=== PATIENT | male | born 1970 | race Caucasian/White ===

== ENCOUNTER 2021-03-02 15:24 | Outpatient (CLI) | payer OTHER, SELFPAY ==
--- NOTE | ~2021-03-02 | XR_ITS ---
EXAMINATION: XR shoulder RT min 2V DATE: 03/02/2021 15:51 INDICATION: Right shoulder pain. TECHNIQUE: 4 views of right shoulder were obtained. COMPARISON: None. FINDINGS: Bone alignment is normal. No fracture. There is mild osteoarthritis of glenohumeral joint a nd acromioclavicular joint. IMPRESSION: 1. Polyarticular osteoarthritis. Reviewed, dictated and finalized at location A.
== END 2021-03-02 15:25 | disposition home or self-care (01) ==
LOC: ANHIMG 15:35
PROVIDERS: PCP Family Medicine; Visit Provider Physician Assistant
DX: M19.011 Primary osteoarthritis, right shoulder (principal)
CPT/HCPCS: 73030

== ENCOUNTER 2022-05-09 11:04 | Day surgery (SDC) | payer OTHER, SELFPAY ==
[2022-04-10 13:01] VITALS: BMI 34.7
[2022-04-24 11:19] VITALS: BMI 33.5
--- NOTE | 2022-05-08 15:54 | P.PNAN_ITS ---
Anes - Initial Pre Proc Eval Procedure: Operation Date: 05/09/22 12:00 Proposed Procedures p Screening Colonoscopy - Andres Moreau MD Date/Time: 05/08/22 15:54 Surgeon: Andres Moreau MD Pre Op Diagnosis: Family History of Rectal Cancer Patient Data Age: 51 Gender: M Height: 1.73 m Weight: 100 kg Allergies Allergy/AdvReac Type Severity Reaction Status Date / Time No Known Allergies Allergy Verified 05/09/22 11:50 Home Medications Medication Instructions Recorded Confirmed Type biotin 10,000 mcg capsule 10,000 mcg PO DAILY #30 caps 03/02/22 05/09/22 Rx multivitamin 1 tablet PO DAILY #30 tabs 03/02/22 05/09/22 Rx omega 3-jie-uyw-fish oil 120 1 cap PO DAILY #30 caps 03/02/22 05/09/22 Rx mg-180 mg-500 mg capsule (Fish Oil) Patient hx anesthesia problems: none Family hx anesthesia problems: none Results Review: All pre-operative results and documents have been reviewed as part of the pre- operative evaluation. [facility] Past Medical History Medical History (Updated 03/03/22 @ 14:30 by Zane Turner PA-C) Family history of rectal cancer Keratoacanthoma of lower leg No significant past medical history Surgical History Surgical History (Updated 10/13/19 @ 08:28 by Gi Terry) History of vasectomy Family History Family History (Updated 10/16/18 @ 07:44 by DOCTOR UNKNOWN) Mother Diabetes mellitus Father Family history of Alzheimer's disease Social History Social History (Updated 02/24/21 @ 13:27 by Fartun Milian) Smoking status: Never smoker Second hand tobacco smoke exposure: No Alcohol intake: current Drinks per week: 6 Alcohol use details: Socially Substance use: never Substance use type: does not use Living arrangements: with family Gender identity (if verbalized by the patient): Male Sexual Orientation (if Verbalized by the Patient): Straight or Heterosexual Spiritual care concerns: No Anes - Eval Final PreProcedure Day of Procedure 05/08/22 15:54 Patient weight: obese Heart: regular rate and rhythm Lungs: clear to auscultation Airway: Mallampati scale class II Neurological: alert and oriented Last oral intake: >/= 8 hours ASA classification: II Emergent: no Anesthetic plan: proceed Anesthesia type and monitoring: general GIVS and standard monitoring Results Review: All pre-operative results and documents have been reviewed as part of the pre- operative evaluation. Informed Consent: The patient's anesthetic plan and its attendant risks and benefits were discussed with the patient/family/POA. Questions were solicited and answers provided to the satisfaction of the patient/family/POA.
[2022-05-09 11:58] VITALS: BP 126/91; PULSE 68; RESP 18; TEMP 37.5; O2SAT 100; BMI 33.7
[2022-05-09] MEDS: LACTATED RINGERS 1,000 ML 150 ML IV CONT (12:04)
--- NOTE | 2022-05-09 12:48 | PM.HPGS ---
History of Present Illness History of Present Illness Consent: Risks, benefits, and alternatives have been discussed and questions answered. Patient agrees to proceed with procedure. Chief complaint: Family History of Rectal Cancer Narrative: Larry Peterson is a 51 year old male here for first screening colonoscopy, father had rectal cancer Review of Systems Constitutional: Constitutional: Denies headache(s) and Denies weakness Eyes: Eyes: Denies blurry vision ENT: Reports Normal hearing present, Denies headache(s) and Denies neck pain Cardiovascular: Cardiovascular: Denies chest pain and Denies dyspnea Respiratory: Respiratory: Denies dyspnea Gastrointestinal: Gastrointestinal: Reports no additional gastrointestinal complaints Genitourinary: Genitourinary: Denies dysuria Musculoskeletal: Musculoskeletal: Denies neck pain Integumentary/Breasts: Skin/Breast: Denies dry skin Neurologic: Reports Normal hearing present, Denies headache(s) and Denies weakness Psychiatric: Psychiatric: Denies anxiety Endocrine: Endocrine: Denies change in body appearance Hematologic/Lymphatic: Hematologic/Lymphatic: Denies easy bleeding Allergic/Immunologic: Allergic/Immunologic: Denies urticaria PMFSH Past Medical History Medical History (Updated 03/03/22 @ 14:30 by Zane Turner PA-C) Family history of rectal cancer Keratoacanthoma of lower leg No significant past medical history Surgical History Surgical History (Updated 10/13/19 @ 08:28 by Gi Terry) History of vasectomy Family History Family History (Updated 10/16/18 @ 07:44 by DOCTOR UNKNOWN) Mother Diabetes mellitus Father Family history of Alzheimer's disease Social History Social History (Updated 02/24/21 @ 13:27 by Fartun Milian) Smoking status: Never smoker Second hand tobacco smoke exposure: No Alcohol intake: current Drinks per week: 6 Alcohol use details: Socially Substance use: never Substance use type: does not use Living arrangements: with family Gender identity (if verbalized by the patient): Male Sexual Orientation (if Verbalized by the Patient): Straight or Heterosexual Spiritual care concerns: No Meds Home Medications and Allergies Home Medications Medication Instructions Recorded Confirmed Type biotin 10,000 mcg capsule 10,000 mcg PO DAILY #30 caps 03/02/22 05/09/22 Rx multivitamin 1 tablet PO DAILY #30 tabs 03/02/22 05/09/22 Rx omega 9-tqj-gcr-fish oil 120 1 cap PO DAILY #30 caps 03/02/22 05/09/22 Rx mg-180 mg-500 mg capsule (Fish Oil) Allergies Allergy/AdvReac Type Severity Reaction Status Date / Time No Known Allergies Allergy Verified 05/09/22 11:50 Vital Signs Vital Signs - 24 hr 05/09/22 11:58 Temperature 99.5 F Pulse Rate 68 Respiratory Rate 18 Blood Pressure 126/91 H Pulse Oximetry 100 Oxygen Delivery Room Air Exam Const: General: comfortable and no acute distress HENMT: General nose exam: Normal nares present Eyes: General: appearance normal, both eyes and all related structures Neck: Neck: no JVD Resp: Auscultation: clear to auscultation bilaterally Cardio: Rate: regular rate Rhythm: regular rhythm GI: Inspection: non-distended GI Palp: Yes Soft to palpation Skin: General skin exam: normal color Neuro: General: gait normal Speech: normal speech Extrem: General: normal to inspection Psych: Mental Status: mental status grossly normal Assessment and Plan Assessment and plan (1) Family history of rectal cancer: Code(s): Z80.0 - Family history of malignant neoplasm of digestive organs Status: Acute Assessment and Plan: colonoscopy
[2022-05-09 13:13] VITALS: BP 104/73; PULSE 69; RESP 16; O2SAT 99
[2022-05-09 13:23] VITALS: BP 107/77; PULSE 68; RESP 16; O2SAT 98
[2022-05-09 13:33] VITALS: BP 109/82; PULSE 64; RESP 18; O2SAT 100
--- NOTE | 2022-05-09 13:40 | SUR.PHASEII ---
PT AWAKE AND DRESSED. DRINKING WATER. DENIES PAIN. WAITING ON MD INSTRUCTION SHEET.
--- NOTE | 2022-05-09 13:46 | WPDANESPN ---
Anes - Prog Note Post-Op Date/Time: 05/09/22 13:46 Cardiovascular status: normal Respiratory status: normal Airway patency: baseline Mental status: baseline Post-Op hydration status: normal Vital Signs: Last Vital Signs Temp 37.5 C 05/09/22 11:58 Pulse 64 05/09/22 13:33 Resp 18 05/09/22 13:33 BP 109/82 05/09/22 13:33 Pulse Ox 100 05/09/22 13:33 O2 Del Method Room Air 05/09/22 13:33 Pain Score (VAS): 0 I/O: Intake & Output 05/08/22 05/09/22 05/09/22 23:59 07:59 15:59 Intake Total 400 Balance 400 Post-procedural complaints: none Patient Feedback: Patient satisfied with anesthetic care. Other Findings: Patient vital signs back to baseline. Patient denies nausea and vomiting. Patient's pain under control. Patient OK for discharge.
== END 2022-05-09 13:50 | disposition home or self-care (01) ==
PROVIDERS: PCP Family Medicine; Visit Provider Internal Medicine Gastroenterology
PROC: 0DJD8ZZ Inspection of Lower Intestinal Tract, Via Natural or Artificial Opening Endoscopic (ICD-10-PCS; CPT 45378; principal; 2022-05-09 12:00)
DX: Z80.0 Family history of malignant neoplasm of digestive organs (principal)
CPT/HCPCS: 45385; 45380

== ENCOUNTER 2022-05-09 13:00 | Outpatient (NON) | payer OTHER, SELFPAY | END 2022-05-09 13:01 | disposition home or self-care (01) | PROVIDERS: PCP Family Medicine; Visit Provider Internal Medicine Gastroenterology | DX: Z80.0 Family history of malignant neoplasm of digestive organs (principal) | CPT/HCPCS: 88305 ==